=== PATIENT | female | born 1970 | race Caucasian/White ===

== ENCOUNTER 2017-06-09 10:17 | Emergency (ER) | payer BC ==
[~2017-06-09] VITALS: Ht 154.9 cm; Wt 108.9 kg
[2017-06-09 10:32] VITALS: BP 160/83
[2017-06-09] MEDS ORDERED: TORS20TA2 (10:35)
[2017-06-09] MEDS ORDERED: TIZA2TAB (10:35)
[2017-06-09] MEDS ORDERED: BISO1TAB7 (10:35)
[2017-06-09] MEDS ORDERED: TRAM50TA (10:35)
[2017-06-09] MEDS ORDERED: ATOR80TA72 (10:36)
[2017-06-09] MEDS ORDERED: AMLO5TAB2 (10:38)
[2017-06-09] MEDS ORDERED: TREP1.743 IH (10:38)
[2017-06-09] MEDS ORDERED: POTA20TA4 (10:38)
[2017-06-09] MEDS ORDERED: SPIR25TA3 (10:38)
[2017-06-09] MEDS ORDERED: ZOLP10TA4 (10:38)
[2017-06-09] MEDS ORDERED: GABA600T2 (10:38)
[2017-06-09] MEDS ORDERED: TADA20TA33 (10:38)
[2017-06-09] MEDS ORDERED: ESCITALOPRAM OX10 MG (10:38)
[2017-06-09] MEDS ORDERED: SITA1TAB11 (10:38)
[2017-06-09] MEDS ORDERED: HYDROcodone/APAP 5/325MG 1 TAB TABLET PO ONE (10:45)
--- NOTE | 2017-06-09 10:56 | PHYS DOC ---
Past Medical History Past Medical History: COPD, Diabetes-Type II, Fibromyalgia, High Cholesterol, Other Additional Past Medical Histor: DIP, sleep apnea Past Surgical History: , Other Additional Past Surgical Histo: carpel tunnel Alcohol Use: None Drug Use: None Adult General Chief Complaint Chief Complaint: LOWEREXTREMITY INJURY HPI HPI Patient is a 46 year old female with history of high cholesterol, fibromyalgia , diabetes type 2, COPD with "bad lungs" on oxygen 8 L with oxygen saturations in the high 80s (chronic), who presents with contusion to the right matthews. The patient got hit accidentally with a softball. Review of Systems Review of Systems Constitutional: Denies fever or chills [] Respiratory: Denies cough or shortness of breath [] Musculoskeletal: Right matthews contusion Integument: Denies rash or skin lesions [] Neurologic: Denies headache, focal weakness or sensory changes [] Endocrine: Denies polyuria or polydipsia [] Current Medications Current Medications Current Medications Medications (Trade) Dose Ordered Sig/Maureen Start Time Stop Time Status Last Admin Dose Admin Acetaminophen/ Hydrocodone Bitart (Lortab 5/325) 1 tab 1X ONCE 06/09/17 10:45 06/09/17 10:49 DC 06/09/17 10:57 1 TAB Allergies Allergies Allergies Coded Allergies Type Severity Reaction Last Updated Verified Penicillins Allergy Intermediate rash 06/09/17 Yes Physical Exam Physical Exam Constitutional: Well developed, well nourished, no acute distress, non-toxic appearance. [] Lungs & Thorax: Patient is on oxygen 8 L in the ED. Skin: See extremity Back: No tenderness, no CVA tenderness. [] Extremities: Right anterior proximal matthews with a contusion the size of a softball. The area has ecchymosis, the area is tender to palpate. Full range of motion to the right toes. +2 right pedal pulse. Exam slightly difficult because patient does not want manipulation of her right lower extremity. Neurologic: Alert and oriented X 3, normal motor function, normal sensory function, no focal deficits noted. [] Psychologic: Affect normal, judgement normal, mood normal. [] Current Patient Data Vital Signs Vital Signs Date Time Temp Pulse Resp B/P (MAP) Pulse Ox O2 Delivery O2 Flow Rate FiO2 06/09/17 10:32 98.2 90 20 93 Nasal Cannula 6.0 98.2 EKG EKG [] Radiology/Procedures Radiology/Procedures []PROCEDURE: TIBIA FIBULA RIGHT Right tibia and fibula 2 views. History: Hit with a softball, pain 2 views were taken of the right lower extremity. There is soft tissue swelling. There is no acute fracture or osseous abnormality. Impression: 1. Soft tissue swelling. 2. No fracture or osseous abnormality. DICTATED and SIGNED BY: ABEBE DORADO MD DATE: 06/09/17 1130 CC: AILYN ALFARO; MOI PELLETIER APRN ~ Course & Med Decision Making Course & Med Decision Making Pertinent Labs and Imaging studies reviewed. (See chart for details) This is a 46-year-old female patient with history of COPD on oxygen 8 L at home as well as in the ED who presents with right matthews contusion. Patient got hit with a softball. Right tib-fib x-rays interpreted by radiologist are negative for any acute findings. Patient was discharged with instructions to ice and elevate the extremity. Take [id number] medications as needed and follow up with PCP or orthopedic doctor in 1-2 weeks. Dragon Disclaimer Dragon Disclaimer This electronic medical record was generated, in whole or in part, using a voice recognition dictation system. Departure Departure Impression: Primary Impression: Contusion of right lower extremity Disposition: 01 HOME, SELF-CARE Referrals: AILYN ALFARO (PCP) MARÍA GUZMAN MD follow up with the provided doctor or your doctor in 1 week if pain continues Patient Instructions: Contusion, [id number] Additional Instructions: You were seen for contusion of the right matthews. Your x-rays of the right lower extremity are negative for any acute findings. Ice and elevate the extremity. You can take [id number] pain relievers as needed. Follow-up with your own doctor or the provided orthopedic doctor in one week if pain continues. Problem Qualifiers Primary Impression: Contusion of right lower extremity Encounter type: initial encounter Qualified Codes: S80.11XA - Contusion of right lower leg, initial encounter MOI PELLETIER APRN Jun 09, 2017 10:56
--- NOTE | 2017-06-09 11:33 | RAD ---
Right tibia and fibula 2 views. History: Hit with a softball, pain 2 views were taken of the right lower extremity. There is soft tissue swelling. There is no acute fracture or osseous abnormality. Impression: 1. Soft tissue swelling. 2. No fracture or osseous abnormality.
== END 2017-06-09 11:52 | disposition home or self-care (01) ==
LOC: ER 10:17
DX: S80.11XA Contusion of right lower leg, initial encounter (principal); E11.9 Type 2 diabetes mellitus without complications; E78.00 Pure hypercholesterolemia, unspecified; G47.30 Sleep apnea, unspecified; J44.9 Chronic obstructive pulmonary disease, unspecified; M79.7 Fibromyalgia; Z88.0 Allergy status to penicillin; W21.07XA Struck by softball, initial encounter; Y93.89 Activity, other specified; Y99.8 Other external cause status; Y92.89 Other specified places as the place of occurrence of the external cause
CPT/HCPCS: 73590; 99284